=== PATIENT | male | born 1975 | race African-American/Black ===

== ENCOUNTER 2017-10-02 17:58 | Emergency (ER) | payer MEDICAID ==
[~2017-10-02] VITALS: Ht 175.3 cm; Wt 120.0 kg
[2017-10-03] MEDS ORDERED: HYDROCODONE/APAP 7.5/325MG 1 TAB TABLET PO ONE (00:30)
[2017-10-03 03:45] VITALS: BP 127/70
== END 2017-10-03 04:42 | disposition home or self-care (01) ==
LOC: ER 18:09
DX: S16.1XXA Strain of muscle, fascia and tendon at neck level, initial encounter (principal); S01.91XA Laceration without foreign body of unspecified part of head, initial encounter; S62.501A Fracture of unspecified phalanx of right thumb, initial encounter for closed fracture; M79.671 Pain in right foot; V49.40XA Driver injured in collision with unspecified motor vehicles in traffic accident, initial encounter; Y93.89 Activity, other specified; Y92.410 Unspecified street and highway as the place of occurrence of the external cause; M48.02 Spinal stenosis, cervical region; M25.78 Osteophyte, vertebrae
CPT/HCPCS: 29125; 70450; 72125; 73130; 73562; 73630; 99284; Z7610